=== PATIENT | female | born 1945 | race Caucasian/White ===

== ENCOUNTER → 2019-02-27 | Outpatient (CLI) | payer MEDICARE, MEDICAID ==
[~2019-02-27] MED LIST: ACET-1697 PO; ACET-2151 PO; ACET-2267 PO; ACET-93 PO; ACHD5005 PO; ACID1TAB5 PO; ACYC800T PO; AGM875T; ALBU0.8322 IH; ALBU2.5V4 NEB; ALN70T; ALPR.25T PO; ALPR0.5T7 PO; AMLO1CAP5 PO; AMOX-355 PO; ASCO-262 PO; ASCO100083 PO; ASP325T PO; ASP325TEC PO; ASPI-587 PO; ASPI-875 PO; ASPI325T32 PO; ATOR10TA66 PO; ATOR80TA2 PO; ATR20T PO; ATROVENT NASAL SPRAY INH; ATRV10T PO; AZIT250T81 PO; BENZ100C18 PO; BENZ200C25 PO; BENZ200C51 PO; BNZ20T PO; C250T PO; CA C1TAB26 PO; CALC-185 PO; CALC-694 PO; CALC600T12 PO; CALCIUM 600MG PO; CARB1TAB PO; CARB200T6 PO; CEFD300C3 PO; CHOL10007 PO; CIPR-225 PO; CITA20SO PO; CITA20TA4 PO; CITA20TA9 PO; CLAR-19 PO; CLD600T PO; CYAN250010 PO; CYAN500L PO; CYAN500T62 PO; CYCL5TAB PO; DIVA-74 PO; DIVA125C PO; DIVA125C10 PO; DIVA125T2 PO; DOXY100C2 PO; DOXY100T2 PO; DPH25C PO; DXCC100C PO; ERGO400C PO; FAMO20TA3 PO; FLONASE; FLUT16SP22 NSEACH; FLUT1DIS26 IH; FOLI1TAB10 PO; GFCD10B; GLBR2.5T; HALO1TAB PO; HALO5AMP2 IJ; HCT25T; HYDR-1231 PO; HYDR-22 PO; HYDR-3729 PO; HYDR1TAB66 PO; HYDR50CA PO; HYDR50TA76 PO; HYDROCODONE PO; IBUP-30 PO; ISM30TCR PO; ISOS30TA3 PO; LACT1CAP62 PO; LATA2.5D5 OP; LEVO500T2 PO; LEVO500T69 PO; LEVO750T9 PO; LIDOCAINE; LORA10TA7 PO; LRT10T; LRZ1T; MAG30ORA2 PO; MECL25TA56 PO; METO-333 PO; METO25TA PO; METO25TA2 PO; METO50TA7 PO; MPR22T; MTF500T PO; MTF500TCR; MULT-166 PO; MULT-963 PO; MULT-974 PO; MULT1CAP27 PO; MUPI1OIN5; MV-M1TAB16 PO; NABU500T PO; NST15C; NYST15PO2 TP; OMEG1CAP51 PO; OMEP-10 PO; OMEP-280 PO; OMEP20CA12 PO; OMEP40CA27 PO; OMG1KC PO; ONDA-41 PO; ONDA8TAB6 PO; ONDA8TAB9 PO; OSLT75C PO; OXYB10TA PO; PANT40TA2 PO; PANT40TA3 PO; PIPE4.5F IV; PRD20T PO; PRILOSEC; PRM25T PO; PROM118S4 PO; PROP1TAB77; RANO10003 PO; RANO500T2 PO; RIVA1PAT TD; SCOP1PAT TD; SENN1TAB76 PO; SERT50TA PO; SERT50TA9 PO; SIME80TA6 PO; SIMV40TA2 PO; SOLI5TAB4 PO; SRTR100T PO; SUCR1TAB PO; SUCR1TAB36 PO; SULF1TAB38 PO; SULF1TAB7 PO; TOLT1TAB; TOLTA4; TOLTA4 PO; TR1O15; TYLENOL PM ES PO; VESICARE; VIT D PO; VYTORIN; XANAX; [UNRECOGNIZED DRUG - CODE] PO; [UNRECOGNIZED DRUG - OTHER]; [UNRECOGNIZED DRUG - OTHER]
== END ==
LOC: LABNPT 13:25
DX: Z01.89 Encounter for other specified special examinations (principal)
CPT/HCPCS: 87070; 87077; 87186; 87205

== ENCOUNTER → 2019-05-11 | Outpatient (CLI) | payer MEDICARE, MEDICAID | LOC: LABNPT 18:02 | PROVIDERS: ATTEND Internal Medicine | DX: Z01.89 Encounter for other specified special examinations (principal) | CPT/HCPCS: 87804 ==